=== PATIENT | female | born 1950 | race Caucasian/White ===

== ENCOUNTER 2020-05-13 06:35 | Day surgery (SDC) | payer MEDICARE, SELFPAY ==
[~2020-05-13] VITALS: Ht 162.6 cm; Wt 104.3 kg
[2020-05-13] MEDS ORDERED: CEFAZOLIN SOD 1 GM in D5W 50 ML IV ONE (07:00)
[2020-05-13] MEDS ORDERED: METOCLOPRAMIDE HCL 10 MG/2 ML VIAL IVP PRN (10:15)
[2020-05-13] MEDS ORDERED: hydrALAZINE HCL 20 MG/ML VIAL IVP PRN (10:15)
[2020-05-13] MEDS ORDERED: MEPERIDINE HCL/PF 25 MG/ML DISP.SYRIN IVP PRN (10:15)
[2020-05-13] MEDS ORDERED: LABETALOL 100 MG/ 20ML VIAL IVP PRN (10:15)
[2020-05-13] MEDS ORDERED: LR 1,000 ML IV SCH (10:15)
[2020-05-13] MEDS ORDERED: ONDANSETRON HCL 4 MG/2 ML VIAL IVP PRN (10:15)
[2020-05-13] MEDS ORDERED: HYDROmorphone 1 MG INJ. 1 MG/ML AMPUL IVP PRN ×2 (10:15)
[2020-05-13] MEDS ORDERED: MIDAZOLAM HCL 2 MG/2 ML VIAL (VERSED) IVP PRN (10:15)
[2020-05-13] MEDS ORDERED: D5/0.45 NS 1,000 ML IV SCH (13:15)
[2020-05-13] MEDS ORDERED: HYDROcodone/ACETAMIN 5-325 MG TAB (NORCO/ VICODIN) PO PRN ×2 (13:15)
[2020-05-13 15:00] VITALS: BP_SYST 133
== END 2020-05-13 14:47 | disposition home or self-care (01) ==
LOC: SMU 06:35 → SDS 06:35 → EDSTATUS 08:55 → SDS 14:47
PROVIDERS: ATTEND Colon & Rectal Surgery
DX: C50.511 Malignant neoplasm of lower-outer quadrant of right female breast (principal); I10 Essential (primary) hypertension; E66.01 Morbid (severe) obesity due to excess calories; Z88.1 Allergy status to other antibiotic agents; Z88.2 Allergy status to sulfonamides; Z79.899 Other long term (current) drug therapy
CPT/HCPCS: 19301; 36415; 38525; 78195; 87426; 88305; 88307; A9541; J0690; J7060